=== PATIENT | male | born 1955 | race Caucasian/White ===

== ENCOUNTER → 2016-09-13 | Day surgery (SDC) | payer OTHER ==
[~2016-09-13] MED LIST: APIX5TAB PO; ASPI325T11 PO; ASPI81TA9 PO; ATOR20TA58 PO; CLOP75TA27 PO; ENOX80DI SQ; HYDROmorphone 2 MG/ML VIAL IV PRN; IBUP-1027 PO; IV RINGERS,LACTATED 1000ML 1,000 ML IV SCH; LIDOCAINE 1% 1 ML SYRINGE. ID PRN; LIDOCAINE 2% PF Vial for OR 5 ML VIAL. ONE; LISI2.5T PO; METO25TA9 PO; MORPHINE SULFATE 2 MG/ML DISP.SYRIN. IV PRN; NITR0.4T SL; OMEP20TA PO; OMEP20TA63 PO; ONDANSETRON PF 4 MG/2 ML VIAL. IV PRN; OXYC5CAP3 PO; PANT40TA3 PO; PANT40TA5 PO; PROCHLORPERAZINE 10 MG/2 ML VIAL. IV PRN; PROPOFOL 20 ML IV ONE; fentaNYL PF VIAL 100 MCG/2 ML VIAL IV PRN
[2016-09-13 08:39] VITALS: BP 119/78
--- NOTE | 2016-09-14 10:25 | HP ---
ADMIT DATE: 09/13/2016 REFERRING PHYSICIAN: Ruby Hernadez, nurse practitioner. HISTORY OF PRESENT ILLNESS: A 60-year-old male with past medical history significant for hypertension as well as hyperlipidemia, gastroesophageal reflux disease, esophageal stricture, was seen with recurrent dysphagia mainly for solids in a substernal location. The patient has had previous dilatations with improvement in symptoms. Once, the dilation was approximately 18 months, previously been on Protonix 40 mg daily in the interim. With continued symptoms, he requests additional evaluation. PAST MEDICAL HISTORY: Organic heart disease, hypertension, hyperlipidemia, gastroesophageal reflux disease. ALLERGIES: None. MEDICATIONS: Include Eliquis, aspirin, atorvastatin, lisinopril, metoprolol, nitroglycerin and pantoprazole. PAST SURGICAL HISTORY: Status post inguinal hernia repair, cholecystectomy and back surgery. FAMILY AND SOCIAL HISTORY: He is a social drinker and smoker. REVIEW OF SYSTEMS: Per records. PHYSICAL EXAMINATION: GENERAL: Reveals a well-nourished, well-developed male. VITAL SIGNS: Temperature is 98.1, pulse 60, respirations 20. HEENT: Normocephalic and atraumatic head. Pupils and extraocular muscles not tested. Sclerae anicteric. NECK: Supple. LUNGS: Clear. CARDIOVASCULAR: Reveals an S1, S2 without S3, S4 or appreciable murmur. ABDOMEN: Reveals soft abdomen, normal bowel sounds, without appreciable hepatosplenomegaly. EXTREMITIES: Reveals no cyanosis, clubbing or edema. IMPRESSION: Dysphagia with known history of stricture. Recommend upper endoscopy, possible biopsy and dilatation. Risks and benefits have been previously discussed with the patient who is willing to proceed. I thank Damari Hernadez for allowing us to participate in his care . FUNMI YING MD DR: ZOLTAN/vale JOB#: [id number] / [id number]
--- NOTE | 2016-09-18 13:37 | PATHOLOGY ---
PATHOLOGY REPORT * * * * * * * * FINAL DIAGNOSIS: Esophageal biopsy: - Segments of hyperplastic squamous esophageal mucosa showing acute and chronic inflammation with intraepithelial neutrophils and focal presence of yeast and pseudohyphae, consistent with Annalise esophagitis. COMMENT: Sections of the esophageal biopsy reveal segments of tangentially oriented, hyperplastic squamous esophageal mucosa showing acute and chronic inflammation with intraepithelial neutrophils. A PAS stain for yeast/fungi is obtained. There are focal yeast and pseudohyphae consistent with Annalise species. The findings are consistent with Annalise esophagitis. There is no evidence of Allen's change, dysplasia or malignancy. (JPM:csd; d/t: 09/14/2016) Special stains: PAS stain for yeast/fungi REPORT ELECTRONICALLY SIGNED BY: Danial Nice M.D. DATE/TIME: 09/18/2016 13:36 * * * * * * * * GROSS PATHOLOGY: Received in formalin labeled "Christopher Hairston , esophageal biopsy," are three segments of moore soft tissue measuring 0.8 x 0.7 x 0.1 cm in aggregate dimensions and ranging from 0.3 to 0.5 cm in maximum dimension. The specimen is submitted entirely in cassette A1. (CAA; 09/14/2016) INITIAL CPT CODE(S): A; 87097, 50023 Professional services performed [place] [facility] [address] Technical services performed by [facility] at [address] [place] [address] [address] [address]. SPECIMEN(S) RECEIVED: A.Esophageal biopsy CLINICAL HISTORY: Dysphagia PATIENT: BESS HAIRSTONDEE Jimenez /AGE: 610/03/1955 (Age: 60) PATIENT #: [id number] ALT CASE #: SPECIMEN COLLECTION DATE: 09/13/2016 SPECIMEN RECEIVED DATE: 09/13/2016 [facility] - [id number] [place] [address] - PHONE: [phone] * * * END OF REPORT * * *
== END | disposition home or self-care (01) ==
LOC: ENDOS 06:31
PROVIDERS: ATTEND Internal Medicine Gastroenterology
DX: K21.0 Gastro-esophageal reflux disease with esophagitis (principal); K22.2 Esophageal obstruction; K29.50 Unspecified chronic gastritis without bleeding; E78.00 Pure hypercholesterolemia, unspecified; I10 Essential (primary) hypertension; M19.90 Unspecified osteoarthritis, unspecified site; Z90.49 Acquired absence of other specified parts of digestive tract; Z72.89 Other problems related to lifestyle
CPT/HCPCS: 43239; 43249; 88305; 88312; J2704

== ENCOUNTER → 2017-01-22 | Outpatient (CLI) | payer OTHER ==
[~2017-01-22] MED LIST changes: +ASPI-612 PO; -ASPI81TA9 PO; -CLOP75TA27 PO; +CLOP75TA57 PO; -HYDROmorphone 2 MG/ML VIAL IV PRN; -IV RINGERS,LACTATED 1000ML 1,000 ML IV SCH; -LIDOCAINE 1% 1 ML SYRINGE. ID PRN; -LIDOCAINE 2% PF Vial for OR 5 ML VIAL. ONE; +METO-239 PO; -METO25TA9 PO; -MORPHINE SULFATE 2 MG/ML DISP.SYRIN. IV PRN; -OMEP20TA PO; +OMEP20TA8 PO; -ONDANSETRON PF 4 MG/2 ML VIAL. IV PRN; +OXYC5CAP PO; -OXYC5CAP3 PO; -PROCHLORPERAZINE 10 MG/2 ML VIAL. IV PRN; -PROPOFOL 20 ML IV ONE; -fentaNYL PF VIAL 100 MCG/2 ML VIAL IV PRN
--- NOTE | 2017-01-22 09:04 | KCIC ---
UPPER EXT JOINT WO CONT LEFT dated 01/22/2017 8:00 AM Indication: Shoulder pain for couple of months , no known injury. Decreased range of motion.. Comparison: No comparison is available. Technique: Routine multiplanar multisequence imaging performed. No contrast administered. Findings: Intermediate T2 signal throughout the supraspinatus and infraspinatus portions of the rotator cuff. There is a small linear defect at the central supraspinatus footplate that measures about 4 mm AP dimension and 1.6 cm transverse. May be a few thin fibers remain attached. The articular and bursal surface margins are ill-defined. Increased signal and thickening of the subscapularis which is otherwise intact. There is moderate increased signal within the substance a long head biceps tendon proximally. Extra articular portion courses within the bicipital groove. Increased signal also extends to the biceps anchor which is somewhat ill-defined. There is blunted morphology of the posterior superior labrum extending from 12:00 to about 5:00. The anterior labrum is grossly intact. No para labral cyst. No significant glenohumeral joint effusion or loose body. No full-thickness cartilage defect. Moderate hypertrophic change of the acromioclavicular joint. Mild undersurface spurring. Acromion type I morphology. Small amount of subacromial/subdeltoid bursal fluid. Suprascapular and spinoglenoid notches are clear. No significant muscle edema or muscle atrophy. No bone marrow edema. IMPRESSION: 1. Moderate rotator cuff tendinopathy with small full-thickness tear versus high-grade interstitial partial tear of the central supraspinatus footplate. 2. Blunted morphology of the biceps anchor and posterior labrum, likely chronic degenerative labral tearing. 3. Moderate AC joint arthropathy with undersurface spurring of the acromium. 4. Moderate proximal biceps tendinosis. Electronically signed by: Kyle Hemphill MD (01/22/2017 9:00 AM) [facility]
== END | disposition home or self-care (01) ==
LOC: MERGE 07:34 → KCIC MRI 07:34
PROVIDERS: ATTEND Nurse Practitioner Gerontology
DX: M25.512 Pain in left shoulder (principal)
CPT/HCPCS: 73221

== ENCOUNTER → 2017-01-25 | Outpatient (CLI) | payer OTHER ==
[2016-09-13 08:39] VITALS: BP 119/78
[~2017-01-25] MED LIST changes: +HYDR2TAB31 PO; +METO25TA4 PO; +OMEP40CA5 PO
--- NOTE | 2017-01-25 10:26 | CARD ---
APPROVED REPORT EXAM: Two-dimensional and M-mode echocardiogram with Doppler and color Doppler. Other Information Quality : Average Rhythm : NSR INDICATION Cardiac Disease: CAD 2D DIMENSIONS RVDd2.7 (2.9-3.5cm)Left Atrium(2D)3.3 (1.6-4.0cm) IVSd1.2 (0.7-1.1cm)Aortic Root(2D)3.3 (2.0-3.7cm) LVDd4.3 (3.9-5.9cm)LVOT Diameter2.0 (1.8-2.4cm) PWd1.1 (0.7-1.1cm)LVDs3.2 (2.5-4.0cm) FS (%) 25.1 %SV41.6 ml Aortic Valve AoV Peak Louie.89.4cm/sAoV VTI16.1cm AO Peak GR.3.2mmHgLVOT Peak Louie.82.7cm/s AO Mean GR.2mmHgAVA (VMAX)3.04cm2 Mitral Valve MV E Crfhnqul52.7cm/sMV E Peak Gr.1mmHg MV DECEL [id number] A Dyhkcoss20.2cm/s MV E Mean Gr.0mmHgMV NMJ12vu E/A Ratio0.9MV A Lhxxbwct125vf MVA (PHT)2.63cm2 Pulmonary Vein S1 Mqapdljb25.3cm/sD2 Spnkfovc38.4cm/s LEFT VENTRICLE The left ventricle is normal size. There is normal left ventricular wall thickness. The Ejection Frac tion is 50-55%. Basal inferior wall hypokinesis. Tissue Doppler imaging reveals mild left ventricular diastolic dysfunction. Transmitral Doppler flow pattern is Grade I-abnormal relaxation pattern. Ther e is no ventricular septal defect visualized. RIGHT VENTRICLE The right ventricle is normal size. The right ventricular systolic function is normal. ATRIA The left atrium size is normal. The right atrium size is normal. The interatrial septum is intact wit h no evidence for an atrial septal defect or patent foramen ovale as noted on 2-D or Doppler imaging. AORTIC VALVE The aortic valve is mildly calcified. The aortic valve is trileaflet. Doppler and Color Flow revealed no significant aortic regurgitation. There is no significant aortic valvular stenosis. MITRAL VALVE The mitral valve is normal in structure and function. There is no mitral valve stenosis. Doppler and Color Flow revealed no mitral valve regurgitation noted. TRICUSPID VALVE The tricuspid valve is normal in structure and function. Doppler and Color Flow revealed no tricuspid valve regurgitation noted. Unable to estimate PA pressure. There is no tricuspid valve stenosis. PULMONIC VALVE The pulmonary valve is normal in structure and function. Doppler and Color Flow revealed no pulmonic valvular regurgitation. There is no pulmonic valvular stenosis. GREAT VESSELS The aortic root is normal in size. The ascending aorta is normal in size. Normal pulmonary venous lobo w (Doppler). The IVC was not well visualized. PERICARDIAL EFFUSION There is no evidence of significant pericardial effusion. Critical Notification Critical Value: No <Conclusion> Basal inferior wall hypokinesis. The Ejection Fraction is 50-55%. Transmitral Doppler flow pattern is Grade I-abnormal relaxation pattern. There is no evidence of significant pericardial effusion.
== END | disposition home or self-care (01) ==
LOC: ECHO 08:45 → MERGE 09:00 → EDUNIT# 09:00
PROVIDERS: ATTEND Internal Medicine Cardiovascular Disease
DX: I25.10 Atherosclerotic heart disease of native coronary artery without angina pectoris (principal)
CPT/HCPCS: 93306

== ENCOUNTER 2017-02-06 08:39 | Day surgery (SDC) | payer OTHER ==
[~2017-02-06] VITALS: Ht 170.2 cm; Wt 78.5 kg
[~2017-02-06 08:39] MED LIST changes: -HYDR2TAB31 PO; +HYDROmorphone 2 MG/ML VIAL IV PRN; +IV RINGERS,LACTATED 1000ML 1,000 ML IV SCH; +LIDOCAINE 1% PF 2 ML VIAL. ID PRN; +MORPHINE SULFATE 2 MG/ML DISP.SYRIN. IV PRN; +ONDANSETRON PF 4 MG/2 ML VIAL. IV PRN; +PROCHLORPERAZINE 10 MG/2 ML VIAL. IV PRN; +fentaNYL PF VIAL 100 MCG/2 ML VIAL IV PRN
[2017-02-06] MEDS ORDERED: DEXAMETHASONE SOD PHOS 20 MG/5 ML VIAL. ONE (09:57)
[2017-02-06] MEDS ORDERED: MIDAZOLAM HCL/PF 2 MG/2 ML VIAL. ONE (09:57)
[2017-02-06] MEDS ORDERED: PROPOFOL 20 ML IV ONE ×2 (09:57→12:54)
[2017-02-06] MEDS ORDERED: DESFLURANE 61 TO 120 MINUTES IH ONE (09:57)
[2017-02-06] MEDS ORDERED: ONDANSETRON PF 4 MG/2 ML VIAL. ONE (09:57)
[2017-02-06] MEDS ORDERED: fentaNYL PF VIAL 100 MCG/2 ML VIAL ONE (09:57)
[2017-02-06] MEDS ORDERED: ROCURONIUM 50 MG/5 ML VIAL. ONE (09:57)
[2017-02-06] MEDS ORDERED: LIDOCAINE 2% PF Vial for OR 5 ML VIAL. ONE (09:58)
[2017-02-06] MEDS ORDERED: PHENYLEPHRINE 10 MG/ML VIAL. ONE (09:58)
[2017-02-06] MEDS ORDERED: EPINEPHrine VIAL 30 MG/30 ML VIAL ONE (10:01)
[2017-02-06] MEDS ORDERED: BUPIVACAINE MPF 0.5% 30 ML VIAL. ONE ×2 (10:05→10:11)
[2017-02-06 10:09] LABS: CALCIUM 8.6 mg/dL (8.5-10.1); GFR 75.5; POTASSIUM 4.1 mmol/L (3.5-5.1)
--- NOTE | 2017-02-06 10:45 | DISCH ---
DISCHARGE INSTRUCTIONS Condition on Discharge Condition on Discharge: Stable Activity After Discharge Activity Instructions for Disc: Other, see below Other activity instructions: no active motion of left arm away from body, keep elbow at side for any use Diet after Discharge Diet after Discharge: Regular Wound Incision Care Wound/Incision Care: Ice to area for comfort, Change dressing Other wound/incision instructi: removed dressings in 2 days may then shower Community/Resources/Services Services at Discharge: PT EVALUATE & TREAT (pendulum exercises and passive range of motion of left shoulder only) Contacting the [facility] after DC Call your doctor for: Concerns you may have Follow-Up Follow up with: Saran 7-10 days ALEXA COOK MD Feb 06, 2017 10:45
[2017-02-06] MEDS ORDERED: HYDR2TAB31 PO (10:51)
[2017-02-06 10:52] LABS: BASO # 0.1 x10^3/uL (0.0-0.2); BASO % 1 % (0-3); EOS % 2 % (0-3); HEMATOCRIT 45.6 % (39.0-53.0); HEMOGLOBIN 15.7 g/dL (13.0-17.5); LYMPH # 2.4 x10^3/uL (1.0-4.8); LYMPH % 28 % (24-48); MEAN CORPUSCULAR HEMOGLOBIN 33 pg (25-35); MEAN CORPUSCULAR HGB CONC 34 g/dL (31-37); MEAN CORPUSCULAR VOLUME 95 fL (79-100); MONO % 7 % (0-9); NEUT % 63 % (31-73); PLATELET COUNT 164 x10^3/uL (140-400); RED CELL DISTRIBUTION WIDTH 13.6 % (11.5-14.5); WHITE BLOOD COUNT 8.5 x10^3/uL (4.0-11.0)
--- NOTE | 2017-02-06 11:03 | RAD ---
Chest radiograph 02/06/2017 12:29 PM Indication: Preoperative examination. Comparison: CT chest 02/25/2016 Technique: Single portable upright frontal view of the chest is provided. Findings: Cardiomediastinal silhouette is within normal limits. There is elevation of left hemidiaphragm. No pleural effusions, pulmonary vascular congestion or pneumothorax. The lungs are clear. Osseous structures are normal. Impression: No acute cardiopulmonary process. There is new elevation left hemidiaphragm. Findings could represent infiltration of the left hemidiaphragm versus diaphragmatic palsy.
[2017-02-06] MEDS ORDERED: ESMOLOL 100 MG/10 ML VIAL. IV ONE (11:38)
[2017-02-06] MEDS ORDERED: GLYCOPYRROLATE 1 MG/5 ML VIAL. ONE ×3 (12:36)
[2017-02-06] MEDS ORDERED: NEOSTIGMINE METHYLSULFATE 5 MG/5 ML SYRINGE. ONE (13:32)
[2017-02-06] MEDS ORDERED: SEVOFLURANE > 120 MINUTES. IH ONE (13:35)
[2017-02-06] MEDS ORDERED: HYDROmorphone 2 MG TABLET PO ONE (14:00)
[2017-02-06] MEDS: fentaNYL PF VIAL 100 MCG/2 ML VIAL IV PRN ×2 (14:22→14:29)
[2017-02-06 14:50] VITALS: BP 137/80
--- NOTE | 2017-02-06 16:42 | PDOC4 ---
Operative Note Operative Note Date of surgery: 02/06/2017 Preoperative diagnosis: Left shoulder rotator cuff repair biceps fraying impingement and acromioclavicular joint degenerative joint disease and pain Postoperative diagnosis: Rotator cuff intact, severe biceps fraying, subacromial impingement and acromioclavicular joint degenerative change as well as significant superior labral fraying Procedure: Left shoulder arthroscopy superior labral debridement biceps tenodesis, distal clavicle excision and subacromial decompression Surgeon: Saran Anesthesia: Gen. endotracheal plus interscalene block Estimated blood loss 20 mL Complications: None Operative indications: Patient is a 61-year-old male with left shoulder pain unresponsive to nonoperative management MRI was concerning for a rotator cuff tear he certainly had biceps irritation signs as well and signs of fraying impingement and acromioclavicular joint pain with severe degenerative changes present. I had gone over with him operative treatment options including the long recovery process possibility of rotator cuff repair and the expected restrictions in the possibility of nonhealing continued pain nerve or blood vessel damage infection medical or other anesthetic complications among others. All his questions were answered he wants proceed with surgical evaluation and treatment after informed consent was obtained Operative text: Patient was identified procedure verified patient placed in the supine position on the operating table. After adequate amounts of general endotracheal anesthesia plus pre-existing interscalene block was obtained, he was placed in the decubitus position left side up all bony prominences were well -padded and the shoulder was examined under anesthesia found to have full range of motion no instability. The left shoulder was then prepped and draped in standard sterile fashion placed in the arthroscopic arm souza with a total of 10 pounds of traction timeout was then performed patient procedure identified and verified and a standard posterior portal was established an anterior portal established using spinal localization and the shoulder joint was systematically examined. He was noted to have severe biceps tendon fraying and superior labral fraying biceps was tagged and tenotomized superior labrum was debrided back to stable tissue subscapularis and the remainder the rotator cuff appeared intact to insertion normal bare area of the humerus capsule ligament structures and well maintained glenohumeral joint was noted. Subacromial space was then entered bursa was cleared to allow visualization and a large anterior subacromial spur was removed back to a type I acromion using cutting block technique he had a very large spur inferiorly on the acromioclavicular joint and the joint was very narrowed and degenerative distal clavicle was excised to 1 cm to allow an adequate joint space preserving overlying joint capsule for stability bony fragments were then removed and the rotator cuff was examined on the bursal side and all degrees of internal/external rotation and found to be intact biceps was tenodesed with the [employer] biceps are device in the bicipital groove under adequate tension joint was drained of arthroscopic fluid portals closed with nylon suture sterile dressings were applied patient was placed in a sling extirpated transferred to postop holding in stable condition having tolerated procedure well ALEXA COOK MD Feb 06, 2017 16:42
== END 2017-02-06 15:42 | disposition home or self-care (01) ==
LOC: SURG 08:39
PROVIDERS: ATTEND Orthopaedic Surgery
DX: M19.012 Primary osteoarthritis, left shoulder (principal); M25.812 Other specified joint disorders, left shoulder; S46.012A Strain of muscle(s) and tendon(s) of the rotator cuff of left shoulder, initial encounter; X58.XXXA Exposure to other specified factors, initial encounter; Y93.89 Activity, other specified; Y92.89 Other specified places as the place of occurrence of the external cause; Y99.8 Other external cause status; I11.0 Hypertensive heart disease with heart failure; I50.9 Heart failure, unspecified; I25.10 Atherosclerotic heart disease of native coronary artery without angina pectoris; K21.9 Gastro-esophageal reflux disease without esophagitis; Z90.49 Acquired absence of other specified parts of digestive tract; Z98.890 Other specified postprocedural states; Z86.718 Personal history of other venous thrombosis and embolism; Z87.39 Personal history of other diseases of the musculoskeletal system and connective tissue; Z72.89 Other problems related to lifestyle; Z72.0 Tobacco use
CPT/HCPCS: 29823; 29824; 36415; 71010; 80048; 85025; C1713; J0171; J0690; J1100; J2250; J2405; J2704; J2710; J3010; J3490; J2001

== ENCOUNTER → 2017-07-16 | Outpatient (CLI) | payer OTHER ==
[2017-07-16] MEDS: REGADENOSON 0.4 MG/5 ML DISP.SYRIN. IV (10:14)
== END | disposition home or self-care (01) ==
LOC: NM 07:54
DX: I11.0 Hypertensive heart disease with heart failure (principal); I25.10 Atherosclerotic heart disease of native coronary artery without angina pectoris; I25.2 Old myocardial infarction; Z87.891 Personal history of nicotine dependence
CPT/HCPCS: 78452; 93017; 96374; 96375; 96376; A9500; J2785

== ENCOUNTER 2017-07-30 06:39 | Outpatient (CLI) | payer OTHER ==
[2017-07-30 07:58] LABS: HEMOGLOBIN 14.9 g/dL (13.0-17.5); MEAN CORPUSCULAR HEMOGLOBIN 32 pg (25-35); MEAN CORPUSCULAR HGB CONC 34 g/dL (31-37); MEAN CORPUSCULAR VOLUME 94 fL (79-100); PLATELET COUNT 175 x10^3/uL (140-400); RED BLOOD COUNT 4.69 x10^6/uL (4.30-5.70); RED CELL DISTRIBUTION WIDTH 14.6 % (11.5-14.5); WHITE BLOOD COUNT 6.4 x10^3/uL (4.0-11.0)
[2017-07-30 08:10] LABS: ANION GAP 8 (6-14); BLOOD UREA NITROGEN 8 mg/dL (8-26); CALCIUM 8.6 mg/dL (8.5-10.1); CARBON DIOXIDE 27 mmol/L (21-32); CHLORIDE 104 mmol/L (98-107); CREATININE 1.2 mg/dL (0.7-1.3); GFR 61.1; GLUCOSE 102 mg/dL (70-99); POTASSIUM 3.7 mmol/L (3.5-5.1); SODIUM 139 mmol/L (136-145)
[2017-07-30 08:27] LABS: INR 1.1 (0.8-1.1); PARTIAL THROMBOPLASTIN TIME 28 SEC (24-38); PROTHROMBIN TIME PATIENT 14.1 SEC (11.7-14.0)
[2017-07-30] MEDS ORDERED: LIDOCAINE 2% 20 ML VIAL. (09:18)
[2017-07-30] MEDS ORDERED: IODIXANOL 320MG/ML 50ML VIAL. (09:18)
[2017-07-30] MEDS ORDERED: IODIXANOL 320 MG/ML 100 ML VIAL. (09:18)
[2017-07-30] MEDS ORDERED: fentaNYL PF VIAL 100 MCG/2 ML VIAL (09:46)
[2017-07-30] MEDS ORDERED: HEPARIN for IV BOLUS 10,000 UNIT/10 ML VIAL. (09:46)
[2017-07-30] MEDS ORDERED: MIDAZOLAM HCL/PF 5 MG/5 ML VIAL. (09:46)
[2017-07-30] MEDS ORDERED: CONTRAST GIVEN MC (10:15)
[2017-07-30] MEDS: IODIXANOL 320MG/ML 50ML VIAL. IART (10:42)
[2017-07-30] MEDS: IODIXANOL 320 MG/ML 100 ML VIAL. IART (10:42)
[2017-07-30] MEDS: fentaNYL PF VIAL 100 MCG/2 ML VIAL IV (10:43)
[2017-07-30] MEDS: LIDOCAINE 2% 20 ML VIAL. IJ (10:43)
[2017-07-30] MEDS: MIDAZOLAM HCL/PF 5 MG/5 ML VIAL. IV (10:43)
[2017-07-30] MEDS ORDERED: fentaNYL PF VIAL 100 MCG/2 ML VIAL IV (11:00)
[2017-07-30] MEDS ORDERED: NITROGLYCERIN SUBLINGUAL 0.4 MG BOTTLE OF 25. SL (11:00)
[2017-07-30] MEDS ORDERED: MAGNESIUM HYDROXIDE 2,400 MG/30 ML ORAL.SUSP. PO (11:00)
[2017-07-30] MEDS ORDERED: MIDAZOLAM HCL/PF 2 MG/2 ML VIAL. IV (11:00)
[2017-07-30] MEDS ORDERED: 0.9 % SODIUM CHLORIDE 10 ML DISP.SYRIN. IV (11:00)
[2017-07-30] MEDS ORDERED: ACETAMINOPHEN 325 MG TABLET. PO (11:00)
[2017-07-30] MEDS ORDERED: IV 1/2 NORMAL SALINE 1,000 ML IV (12:00)
== END 2017-07-30 13:20 | disposition home or self-care (01) ==
LOC: US 06:39
DX: I25.10 Atherosclerotic heart disease of native coronary artery without angina pectoris (principal); I73.9 Peripheral vascular disease, unspecified; I77.1 Stricture of artery; I11.0 Hypertensive heart disease with heart failure; I50.9 Heart failure, unspecified; J44.9 Chronic obstructive pulmonary disease, unspecified; R68.89 Other general symptoms and signs
CPT/HCPCS: 36415; 75630; 80048; 85027; 85610; 85730; 93880; 99152; 99153; C1771; C1892; J1644; J2250; J3010

== ENCOUNTER 2017-09-13 14:37 | Inpatient (IN) | payer OTHER ==
[2017-09-13] MEDS ORDERED: ONDANSETRON PF 4 MG/2 ML VIAL. IV (16:00)
[2017-09-13] MEDS ORDERED: HEPARIN 25,000UTS/500ML PREMIX 500 ML IV (16:00)
[2017-09-13] MEDS: ACETAMINOPHEN 325 MG TABLET. PO ×2 (16:00→21:34)
[2017-09-13 16:05] LABS: ADD MAN DIFF? NO
[2017-09-13 16:10] LABS: BASO % 0 % (0-3); EOS % 1 % (0-3); HEMATOCRIT 37.1 % (39.0-53.0); HEMOGLOBIN 13.1 g/dL (13.0-17.5); LYMPH # 2.1 x10^3/uL (1.0-4.8); LYMPH % 26 % (24-48); MEAN CORPUSCULAR HEMOGLOBIN 33 pg (25-35); MEAN CORPUSCULAR HGB CONC 35 g/dL (31-37); MEAN CORPUSCULAR VOLUME 92 fL (79-100); MONO # 0.6 x10^3/uL (0.0-1.1); MONO % 7 % (0-9); NEUT # 5.2 x10^3uL (1.8-7.7); NEUT % 66 % (31-73); PLATELET COUNT 182 x10^3/uL (140-400); RED BLOOD COUNT 4.03 x10^6/uL (4.30-5.70); RED CELL DISTRIBUTION WIDTH 14.2 % (11.5-14.5)
[2017-09-13 16:15] LABS: ANION GAP 10 (6-14); BLOOD UREA NITROGEN 7 mg/dL (8-26); BUN/CREATININE RATIO 7 (6-20); CARBON DIOXIDE 25 mmol/L (21-32); CHLORIDE 100 mmol/L (98-107); GFR 75.5; GLUCOSE 105 mg/dL (70-99); POTASSIUM 3.5 mmol/L (3.5-5.1); SODIUM 135 mmol/L (136-145)
[2017-09-13 16:20] LABS: INR 1.6 (0.8-1.1); PARTIAL THROMBOPLASTIN TIME 40 SEC (24-38); PROTHROMBIN TIME PATIENT 18.5 SEC (11.7-14.0)
[2017-09-13 16:22] LABS: ALBUMIN 2.6 g/dL (3.4-5.0); ALBUMIN/GLOBULIN RATIO 0.7 (1.0-1.7); ALK PHOS 138 U/L (46-116); ALT (SGPT) 21 U/L (16-63); AST (SGOT) 30 U/L (15-37); TOTAL BILIRUBIN 0.9 mg/dL (0.2-1.0); TOTAL PROTEIN 6.1 g/dL (6.4-8.2)
[2017-09-13] MEDS: MORPHINE SULFATE 4 MG/ML DISP.SYRIN. IV ×2 (17:12→21:33)
[2017-09-13] MEDS: METOPROLOL TART IMMED RELEASE 25 MG TABLET. PO (21:34)
[2017-09-13] MEDS: HEPARIN 25,000UTS/500ML PREMIX 500 ML IV (22:51)
[2017-09-14] MEDS: MORPHINE SULFATE 4 MG/ML DISP.SYRIN. IV ×2 (00:13→07:46)
[2017-09-14 06:21] LABS: ADD MAN DIFF? NO
[2017-09-14 06:36] LABS: INR 1.6 (0.8-1.1); PROTHROMBIN TIME PATIENT 18.2 SEC (11.7-14.0)
[2017-09-14 06:41] LABS: UNFRACTIONATED HEPARIN TESTING > 1.10 IU/mL (0.30-0.70)
[2017-09-14 06:43] LABS: BASO # 0.1 x10^3/uL (0.0-0.2); BASO % 1 % (0-3); EOS # 0.1 x10^3/uL (0.0-0.7); EOS % 2 % (0-3); HEMATOCRIT 35.8 % (39.0-53.0); HEMOGLOBIN 12.6 g/dL (13.0-17.5); LYMPH # 2.7 x10^3/uL (1.0-4.8); LYMPH % 41 % (24-48); MEAN CORPUSCULAR HEMOGLOBIN 33 pg (25-35); MEAN CORPUSCULAR HGB CONC 35 g/dL (31-37); MEAN CORPUSCULAR VOLUME 92 fL (79-100); MONO # 0.4 x10^3/uL (0.0-1.1); MONO % 7 % (0-9); NEUT # 3.2 x10^3uL (1.8-7.7); NEUT % 50 % (31-73); PLATELET COUNT 182 x10^3/uL (140-400); RED BLOOD COUNT 3.88 x10^6/uL (4.30-5.70); RED CELL DISTRIBUTION WIDTH 14.3 % (11.5-14.5); WHITE BLOOD COUNT 6.6 x10^3/uL (4.0-11.0)
[2017-09-14 07:33] LABS: ALBUMIN 2.2 g/dL (3.4-5.0); ALBUMIN/GLOBULIN RATIO 0.7 (1.0-1.7); ALK PHOS 124 U/L (46-116); ALT (SGPT) 18 U/L (16-63); ANION GAP 9 (6-14); AST (SGOT) 25 U/L (15-37); BLOOD UREA NITROGEN 8 mg/dL (8-26); BUN/CREATININE RATIO 9 (6-20); CALCIUM 7.9 mg/dL (8.5-10.1); CARBON DIOXIDE 25 mmol/L (21-32); CHLORIDE 103 mmol/L (98-107); CREATININE 0.9 mg/dL (0.7-1.3); GFR 85.2; GLUCOSE 82 mg/dL (70-99); SODIUM 137 mmol/L (136-145); TOTAL PROTEIN 5.3 g/dL (6.4-8.2)
[2017-09-14] MEDS: ACETAMINOPHEN 325 MG TABLET. PO ×3 (08:37→20:43)
[2017-09-14] MEDS: LISINOPRIL 5 MG TABLET. PO (08:37)
[2017-09-14] MEDS: METOPROLOL TART IMMED RELEASE 25 MG TABLET. PO ×2 (08:37→20:43)
[2017-09-14] MEDS: PANTOPRAZOLE 40 MG TABLET.DR. PO (08:38)
[2017-09-14] MEDS: HYDROmorphone 2 MG TABLET PO ×3 (08:39→18:03)
[2017-09-14] MEDS ORDERED: NON FORMULARY ITEM (Omeprazole 1 CAP) PO (09:00)
[2017-09-14] MEDS: ASPIRIN 325 MG TABLET PO (13:56)
[2017-09-14 14:12] LABS: UNFRACTIONATED HEPARIN TESTING > 1.10 IU/mL (0.30-0.70)
[2017-09-14] MEDS: cefTRIAXone IV Push 1 GM VIAL. IVP (16:57)
[2017-09-14] MEDS: fentaNYL PF VIAL 100 MCG/2 ML VIAL IV ×2 (16:57→20:48)
[2017-09-14 20:25] LABS: UNFRACTIONATED HEPARIN TESTING > 1.10 IU/mL (0.30-0.70)
[2017-09-15] MEDS: HYDROmorphone 2 MG TABLET PO ×4 (00:11→21:21)
[2017-09-15 02:38] LABS: UNFRACTIONATED HEPARIN TESTING 0.84 IU/mL (0.30-0.70)
[2017-09-15 05:17] LABS: HEMATOCRIT 34.1 % (39.0-53.0); HEMOGLOBIN 11.6 g/dL (13.0-17.5); MEAN CORPUSCULAR HEMOGLOBIN 32 pg (25-35); MEAN CORPUSCULAR HGB CONC 34 g/dL (31-37); MEAN CORPUSCULAR VOLUME 93 fL (79-100); PLATELET COUNT 163 x10^3/uL (140-400); RED BLOOD COUNT 3.69 x10^6/uL (4.30-5.70); RED CELL DISTRIBUTION WIDTH 14.2 % (11.5-14.5); WHITE BLOOD COUNT 6.7 x10^3/uL (4.0-11.0)
[2017-09-15 05:36] LABS: ALBUMIN/GLOBULIN RATIO 0.6 (1.0-1.7); ALK PHOS 120 U/L (46-116); ALT (SGPT) 14 U/L (16-63); ANION GAP 9 (6-14); AST (SGOT) 24 U/L (15-37); BLOOD UREA NITROGEN 9 mg/dL (8-26); BUN/CREATININE RATIO 10 (6-20); CARBON DIOXIDE 24 mmol/L (21-32); CHLORIDE 101 mmol/L (98-107); CREATININE 0.9 mg/dL (0.7-1.3); GFR 85.2; GLUCOSE 83 mg/dL (70-99); POTASSIUM 3.7 mmol/L (3.5-5.1); SODIUM 134 mmol/L (136-145); TOTAL BILIRUBIN 0.7 mg/dL (0.2-1.0); TOTAL PROTEIN 5.1 g/dL (6.4-8.2)
[2017-09-15 07:18] LABS: SEDIMENTATION RATE 6 (0-15)
[2017-09-15] MEDS: ACETAMINOPHEN 325 MG TABLET. PO ×3 (08:10→20:57)
[2017-09-15] MEDS: PANTOPRAZOLE 40 MG TABLET.DR. PO (08:11)
[2017-09-15] MEDS: ASPIRIN 325 MG TABLET PO (08:11)
[2017-09-15] MEDS: LISINOPRIL 5 MG TABLET. PO (08:11)
[2017-09-15] MEDS: fentaNYL PF VIAL 100 MCG/2 ML VIAL IV ×2 (08:12→16:20)
[2017-09-15 10:11] LABS: UNFRACTIONATED HEPARIN TESTING 0.68 IU/mL (0.30-0.70)
[2017-09-15] MEDS: HEPARIN 25,000UTS/500ML PREMIX 500 ML IV (10:41)
[2017-09-15] MEDS: METOPROLOL TART IMMED RELEASE 25 MG TABLET. PO ×2 (11:41→20:57)
[2017-09-15] MEDS: cefTRIAXone IV Push 1 GM VIAL. IVP (16:20)
[2017-09-15 16:23] LABS: UNFRACTIONATED HEPARIN TESTING 0.51 IU/mL (0.30-0.70)
[2017-09-15] MEDS: LACTOBACILLUS RHAMNOSUS GG 1 CAPSULE. PO (20:57)
[2017-09-16] MEDS: fentaNYL PF VIAL 100 MCG/2 ML VIAL IV ×4 (03:29→16:16)
[2017-09-16] MEDS: ASPIRIN 325 MG TABLET PO (08:14)
[2017-09-16] MEDS: ACETAMINOPHEN 325 MG TABLET. PO ×3 (08:14→21:20)
[2017-09-16] MEDS: LACTOBACILLUS RHAMNOSUS GG 1 CAPSULE. PO ×2 (08:14→21:20)
[2017-09-16] MEDS: LISINOPRIL 5 MG TABLET. PO (08:14)
[2017-09-16] MEDS: PANTOPRAZOLE 40 MG TABLET.DR. PO (08:15)
[2017-09-16] MEDS: METOPROLOL TART IMMED RELEASE 25 MG TABLET. PO ×2 (08:15→21:00)
[2017-09-16] MEDS: HYDROmorphone 2 MG TABLET PO ×3 (08:15→19:14)
[2017-09-16 16:16] LABS: UNFRACTIONATED HEPARIN TESTING 0.25 IU/mL (0.30-0.70)
[2017-09-16] MEDS: cefTRIAXone IV Push 1 GM VIAL. IVP (16:16)
[2017-09-16] MEDS: HEPARIN for IV BOLUS 10,000 UNIT/10 ML VIAL. IV (16:36)
[2017-09-16 22:36] LABS: UNFRACTIONATED HEPARIN TESTING 0.23 IU/mL (0.30-0.70)
[2017-09-17] MEDS: HEPARIN for IV BOLUS 10,000 UNIT/10 ML VIAL. IV ×2 (00:11→19:40)
[2017-09-17] MEDS: fentaNYL PF VIAL 100 MCG/2 ML VIAL IV ×7 (00:16→23:25)
[2017-09-17] MEDS: PANTOPRAZOLE 40 MG TABLET.DR. PO (07:30)
[2017-09-17] MEDS: ASPIRIN 325 MG TABLET PO (08:00)
[2017-09-17 08:10] LABS: UNFRACTIONATED HEPARIN TESTING 0.33 IU/mL (0.30-0.70)
[2017-09-17] MEDS: ACETAMINOPHEN 325 MG TABLET. PO ×3 (09:00→20:50)
[2017-09-17] MEDS: LACTOBACILLUS RHAMNOSUS GG 1 CAPSULE. PO ×2 (09:00→20:50)
[2017-09-17] MEDS: LISINOPRIL 5 MG TABLET. PO (09:00)
[2017-09-17] MEDS: METOPROLOL TART IMMED RELEASE 25 MG TABLET. PO ×2 (09:00→20:04)
[2017-09-17] MEDS ORDERED: LIDOCAINE WITH 8.4% SOD BICARB 3 ML DISP.SYRIN. (13:45)
[2017-09-17] MEDS ORDERED: IOHEXOL 300 MG/ML 100ML VIAL. (13:46)
[2017-09-17] MEDS ORDERED: IODIXANOL 320 MG/ML 100 ML VIAL. (14:02)
[2017-09-17] MEDS ORDERED: fentaNYL PF VIAL 100 MCG/2 ML VIAL (14:08)
[2017-09-17] MEDS ORDERED: MIDAZOLAM HCL/PF 2 MG/2 ML VIAL. (14:08)
[2017-09-17] MEDS: LIDOCAINE WITH 8.4% SOD BICARB 3 ML DISP.SYRIN. IJ (14:46)
[2017-09-17] MEDS: IODIXANOL 320 MG/ML 100 ML VIAL. IART (14:46)
[2017-09-17] MEDS: MIDAZOLAM HCL/PF 2 MG/2 ML VIAL. IV (14:48)
[2017-09-17] MEDS: cefTRIAXone IV Push 1 GM VIAL. IVP (16:03)
[2017-09-17] MEDS: HYDROmorphone 2 MG TABLET PO (18:17)
[2017-09-17 19:09] LABS: UNFRACTIONATED HEPARIN TESTING 0.17 IU/mL (0.30-0.70)
[2017-09-17] MEDS: HEPARIN 25,000UTS/500ML PREMIX 500 ML IV (19:41)
[2017-09-18 01:49] LABS: UNFRACTIONATED HEPARIN TESTING 0.47 IU/mL (0.30-0.70)
[2017-09-18] MEDS: ASPIRIN 325 MG TABLET PO (07:30)
[2017-09-18] MEDS: HYDROmorphone 2 MG TABLET PO ×2 (07:30→13:33)
[2017-09-18] MEDS: LACTOBACILLUS RHAMNOSUS GG 1 CAPSULE. PO (07:31)
[2017-09-18] MEDS: PANTOPRAZOLE 40 MG TABLET.DR. PO (07:31)
[2017-09-18] MEDS: ACETAMINOPHEN 325 MG TABLET. PO ×2 (07:31→13:24)
[2017-09-18] MEDS: LISINOPRIL 5 MG TABLET. PO (07:38)
[2017-09-18] MEDS: METOPROLOL TART IMMED RELEASE 25 MG TABLET. PO (07:40)
[2017-09-18 08:33] LABS: UNFRACTIONATED HEPARIN TESTING 0.51 IU/mL (0.30-0.70)
[2017-09-18] MEDS: CEPHALEXIN 250 MG CAPSULE. PO (15:56)
[2017-09-18] MEDS: APIXABAN 5 MG TABLET. PO (15:57)
== END 2017-09-18 16:40 | disposition home or self-care (01) | DRG 299 ==
LOC: ER 14:37 → 5 SOUTH 09-17 19:46
PROC: B51C1ZZ Fluoroscopy of Left Lower Extremity Veins using Low Osmolar Contrast (ICD-10-PCS; principal; 2017-09-17)
DX: I82.412 Acute embolism and thrombosis of left femoral vein (principal); E43 Unspecified severe protein-calorie malnutrition; I11.0 Hypertensive heart disease with heart failure; I50.9 Heart failure, unspecified; I25.10 Atherosclerotic heart disease of native coronary artery without angina pectoris; I70.202 Unspecified atherosclerosis of native arteries of extremities, left leg; E78.5 Hyperlipidemia, unspecified; F17.210 Nicotine dependence, cigarettes, uncomplicated; I82.502 Chronic embolism and thrombosis of unspecified deep veins of left lower extremity; I87.2 Venous insufficiency (chronic) (peripheral); J44.9 Chronic obstructive pulmonary disease, unspecified; G89.29 Other chronic pain; I87.002 Postthrombotic syndrome without complications of left lower extremity; Z85.46 Personal history of malignant neoplasm of prostate; I25.2 Old myocardial infarction; Z86.711 Personal history of pulmonary embolism; Z79.01 Long term (current) use of anticoagulants; Z79.82 Long term (current) use of aspirin; Z82.49 Family history of ischemic heart disease and other diseases of the circulatory system; Z95.5 Presence of coronary angioplasty implant and graft; Z90.49 Acquired absence of other specified parts of digestive tract; Z71.6 Tobacco abuse counseling
CPT/HCPCS: 36012; 36415; 75820; 76937; 80053; 85025; 85027; 85520; 85610; 85651; 85730; 93971; 96374; 97162-GP; 97165-GO; 99152; 99285; 99285-25; C1769; C1892; C1894; J0696; J1644; J2250; J2270; J3010

== ENCOUNTER → 2018-04-18 | Outpatient (CLI) | payer OTHER ==
[2017-10-19 08:30] VITALS: BP 130/71
[~2018-04-18] MED LIST changes: +CEPH250C PO; +HYDR2TAB31 PO; -HYDROmorphone 2 MG/ML VIAL IV PRN; -IV RINGERS,LACTATED 1000ML 1,000 ML IV SCH; -LIDOCAINE 1% PF 2 ML VIAL. ID PRN; -MORPHINE SULFATE 2 MG/ML DISP.SYRIN. IV PRN; -ONDANSETRON PF 4 MG/2 ML VIAL. IV PRN; -PROCHLORPERAZINE 10 MG/2 ML VIAL. IV PRN; -fentaNYL PF VIAL 100 MCG/2 ML VIAL IV PRN
--- NOTE | 2018-04-18 08:40 | CARD ---
MR#: [id number] Date of Study: 04/18/2018 Ordering Physician: JOE GARCIA, Referring Physician: JOE GARCIA Tech: Erin Mohr RDCS APPROVED REPORT EXAM: Two-dimensional and M-mode echocardiogram with Doppler and color Doppler. Other Information Quality : GoodHR: 69bpm Rhythm : NSR INDICATION CAD 2D DIMENSIONS RVDd3.0 (2.9-3.5cm)Left Atrium(2D)3.5 (1.6-4.0cm) IVSd1.1 (0.7-1.1cm)Aortic Root(2D)3.3 (2.0-3.7cm) LVDd4.9 (3.9-5.9cm)LVOT Diameter2.3 (1.8-2.4cm) PWd0.8 (0.7-1.1cm)LVDs3.6 (2.5-4.0cm) FS (%) 27.5 %SV61.0 ml LVEF(%)53.2 (>50%) M-Mode DIMENSIONS Left Atrium(MM)3.91 (2.5-4.0cm)Aortic Root3.76 (2.2-3.7cm) Aortic Valve AoV Peak Louie.86.7cm/sAoV VTI19.1cm AO Peak GR.3.0mmHgLVOT Peak Louie.83.1cm/s AO Mean GR.2mmHgAVA (VMAX)4.14cm2 MI (VTI)4.00cm2 Mitral Valve MV E Pfsdrsnh59.7cm/sMV DECEL ANQE793kh MV A Zgxmgqvo54.4cm/sE/A Ratio0.6 MV A Xejyjfgw077qj Pulmonary Valve PV Peak Xdtvlzjf667.5cm/s LEFT VENTRICLE The left ventricle is normal size. There is normal left ventricular wall thickness. Left ventricle sy stolic function is low normal. The Ejection Fraction is 50-55%. The basal to mid inferior wall is mod erately hypokinetic. Transmitral Doppler flow pattern is Grade I-abnormal relaxation pattern. RIGHT VENTRICLE The right ventricle is normal size. There is normal right ventricular wall thickness. The right ventr icular systolic function is normal. ATRIA The left atrium size is normal. The right atrium size is normal. The interatrial septum is intact wit h no evidence for an atrial septal defect or patent foramen ovale as noted on 2-D or Doppler imaging. AORTIC VALVE The aortic valve is normal in structure and function. The aortic valve is trileaflet. Doppler and Col or Flow revealed no significant aortic regurgitation. There is no significant aortic valvular stenosi s. MITRAL VALVE The mitral valve is normal in structure and function. There is no evidence of mitral valve prolapse. There is no mitral valve stenosis. Doppler and Color-flow revealed trace mitral regurgitation. TRICUSPID VALVE The tricuspid valve is normal in structure and function. Doppler and Color Flow revealed no tricuspid valve regurgitation noted. There is no tricuspid valve prolapse or vegetation. There is no tricuspid valve stenosis. PULMONIC VALVE The pulmonary valve is normal in structure and function. Doppler and Color Flow revealed no pulmonic valvular regurgitation. There is no pulmonic valvular stenosis. GREAT VESSELS The aortic root is normal in size. The ascending aorta is normal in size. The IVC is normal in size a nd collapses >50% with inspiration. PERICARDIAL EFFUSION There is no evidence of significant pericardial effusion. Critical Notification Critical Value: No <Conclusion> Left ventricle systolic function is low normal. The Ejection Fraction is 50-55%. The basal to mid inferior wall is moderately hypokinetic. No significant valvular disease. Signed by : Antonio Rubio, Electronically Approved : 04/18/2018 08:39:01
== END | disposition home or self-care (01) ==
LOC: ECHO 07:42
PROVIDERS: ATTEND Internal Medicine Cardiovascular Disease
DX: I25.10 Atherosclerotic heart disease of native coronary artery without angina pectoris (principal)
CPT/HCPCS: 93306

== ENCOUNTER → 2018-10-10 | Day surgery (SDC) | payer MEDICARE, OTHER ==
[~2018-10-10] MED LIST changes: +IV RINGERS,LACTATED 1000ML 1,000 ML IV SCH; +LIDOCAINE 1% PF 2 ML VIAL. ID PRN; +MIDAZOLAM HCL/PF 2 MG/2 ML VIAL. IV PRN; -PANT40TA3 PO; -PANT40TA5 PO; +PANT40TA77 PO; +PROPOFOL 20 ML IV ONE; +fentaNYL PF VIAL 100 MCG/2 ML VIAL IV PRN
[2018-10-10 13:44] VITALS: BP 121/75
--- NOTE | 2018-10-10 19:16 | CONS ---
DATE OF CONSULTATION: 10/10/2018 REFERRING PHYSICIAN: Slim Walker MD. HISTORY OF PRESENT ILLNESS: A 63-year-old male whose past medical history is significant for hypertension, Annalise esophagitis, esophageal strictures, seen for interval dilatation, has had recurrent dysphagia in the substernal location. Denies any melena and/or hematemesis. Weight has been stable. Otherwise, no additional complaints. PAST MEDICAL HISTORY: Organic heart disease, AFib, gastroesophageal reflux disease. ALLERGIES: None. MEDICATIONS: Eliquis and pantoprazole. FAMILY AND SOCIAL DRINKER: He is a social drinker and smoker. PAST SURGICAL HISTORY: Status post back surgery, cholecystectomy, inguinal hernia repair. REVIEW OF SYSTEMS: Per records. PHYSICAL EXAMINATION: GENERAL: Reveals a well-nourished, well-developed male, who is alert, oriented, cooperative, and in no acute distress. VITAL SIGNS: Temperature is 97.8, pulse 64, respiratory rate is 20. HEENT: Normocephalic, atraumatic head. Pupils and extraocular muscles are not tested. Sclerae anicteric. NECK: Supple. LUNGS: Clear. CARDIOVASCULAR: Reveals an S1, S2 without S3, S4 or appreciable murmur. ABDOMEN: Soft abdomen, normal bowel sounds without appreciable hepatosplenomegaly. EXTREMITIES: Reveals no cyanosis, clubbing, or edema. IMPRESSION: Recurrent dysphagia with a known stricture, most likely secondary to recurrent stricturing. Recommend upper endoscopy with possible biopsy and dilatation. Risks and benefits of procedure including risk of hemorrhage and perforation have been discussed. The patient is willing to proceed at this time. FUNMI YING MD DR: ZOLTAN/vale JOB#: [id number] / [id number] SLIM Majano MD
== END ==
LOC: SURG 12:35
PROVIDERS: ATTEND Internal Medicine Gastroenterology
DX: K22.2 Esophageal obstruction (principal); K29.50 Unspecified chronic gastritis without bleeding; K21.9 Gastro-esophageal reflux disease without esophagitis; I48.91 Unspecified atrial fibrillation; Z90.49 Acquired absence of other specified parts of digestive tract
CPT/HCPCS: 43249; J2704; 43450

== ENCOUNTER → 2018-10-16 | Outpatient (CLI) | payer OTHER ==
[2018-10-10 13:44] VITALS: BP 121/75
[~2018-10-16] MED LIST changes: -IV RINGERS,LACTATED 1000ML 1,000 ML IV SCH; -LIDOCAINE 1% PF 2 ML VIAL. ID PRN; -MIDAZOLAM HCL/PF 2 MG/2 ML VIAL. IV PRN; -PROPOFOL 20 ML IV ONE; +REGADENOSON 0.4 MG/5 ML DISP.SYRIN. IV ONE; -fentaNYL PF VIAL 100 MCG/2 ML VIAL IV PRN
--- NOTE | 2018-10-16 10:49 | RAD ---
MR#: [id number] Date of Study: 10/16/2018 Ordering Physician: JOE GARCAI, Referring Physician: GOLDY ANDERSON Tech: EMILIO Barroso APPROVED REPORT Test Type: Pharmacological Stress Nurse/Tech: Supriya Sharma RN Test Indications: CAD Cardiac History: Smoker, 1 stent 2 years ago Medications: See Electronic Medical Record Medical History: See Electronic Medical Record Resting ECG: SB Resting Heart Rate: 51 bpm Resting Blood Pressure: 129/76mmHg Pretest Chest Pain: No chest pain Nurse/Tech Notes S1,S2 and lungs slightly diminished in the bases. Consent: The procedure was explained to the patient in lay terms. Informed consent was witnessed. Walter eout was entered into [employer]. History and Stress Test performed by RT [place] (R) (N) Pharm. Details Pharmacologic stress testing was performed using 0.4mg per 5ml of regadenoson given intravenously ove r 7-10 seconds. Stress Symptoms No chest pain or symptoms. POST EXERCISE Reason for Termination: Infusion complete Target HR: No Max HR: 82 bpm Max Blood Pressure: 133/82mmHg Blood Pressure response to exercise: Normal blood pressure response during stress. Heart Rate response to exercise: WNL Chest Pain: No. Arrhythmia: Yes. PVC ST Change: No. INTERPRETATION Stress EKG Conclusion: Baseline EKG showed sinus rhythm. No ischemic changes at peak stress. No arr hythmias. Imaging Protocol IMAGE PROTOCOL: Rest Tc-99m/stress Tc-99m 1 day Rest: Stress: Viability: Radiopharm.Tc99m VbhfewwmrQf74g Sestamibi Dose9.9mCi 33mCi Duration 13.5min. 13.5min. Img Date 10/16/2018 10/16/2018 Inj-Img Liin96vvz. 60min. Rest Admin Site:IV - Right AntecubitalAdministrator:RT [place] (R)(N) Stress Admin Site: IV - Right AntecubitalAdministrator: MANAS Garcia, ARRT (R)(N) STRESS DATA End Diast. Vol.95.0mlLVEDV index BSA50.0ml End Syst. Vol.27.0mlLVESV index BSA14.0ml Myocardial Jirt249.0gEject. Wygdopsr59.0% Stress Scores Regional WT0.00Summed WT6.00 Regional WM0.00Summed WM0.00 LV Perfusion Scintigraphic images showed small to moderate fixed defect involving base to mid inferior and inferol ateral green consistent with previous myocardial infarction without any reversibility. Wall Motion Basal inferior wall hypokinesis with ejection fraction calculated at 72%. LV Perf. Quant 17 Seg. SSS8.00 17 Seg. SRS9.00 17 Seg. SDS0.00 Stress Defect Extent (% LAD)1.30Rest Defect Extent (% LAD)2.50Rev. Defect Extent (% LAD)0.00 Stress Defect Extent (% LCX) 26.30Rest Defect Extent (% LCX)15.00Rev. Defect Extent (% LCX)1.30 Stress Defect Extent (% RCA)58.90Rest Defect Extent (% RCA)37.80Rev. Defect Extent (% RCA)17.80 Stress Defect Extent (% СВЕТЛАНА)26.30Rest Defect Extent (% СВЕТЛАНА)17.40Rev. Defect Extent (% СВЕТЛАНА)3.90 Conclusion 1. Regadenoson cardioisotope stress test showed qrnoa-fw-morhwawv infarct involving base to mid infer ior and inferolateral green without any ischemia. 2. Basal inferior wall hypokinesis with ejection fraction calculated at 72%. 3. Low risk for cardiac events. Signed by : Joe Garcia, Electronically Approved : 10/16/2018 10:48:41
== END | disposition home or self-care (01) ==
LOC: NM 07:45
PROVIDERS: ATTEND Internal Medicine Cardiovascular Disease
DX: I49.3 Ventricular premature depolarization (principal); I25.10 Atherosclerotic heart disease of native coronary artery without angina pectoris; I25.2 Old myocardial infarction; Z87.891 Personal history of nicotine dependence
CPT/HCPCS: 78452; 93017; A9500; J2785

== ENCOUNTER → 2019-03-26 | Outpatient (CLI) | payer OTHER, MEDICARE ==
[2018-10-10 13:44] VITALS: BP 121/75
[~2019-03-26] MED LIST changes: -NITR0.4T SL; +NITR0.4T24 SL; +OMEP40CA45 PO; -OMEP40CA5 PO; -REGADENOSON 0.4 MG/5 ML DISP.SYRIN. IV ONE
--- NOTE | 2019-03-26 19:28 | RAD ---
MR#: [id number] Date of Study: 03/26/2019 Ordering Physician: JOE GARCIA, Referring Physician: JOE GARCIA, Tech: Jonnie Hidalgo MBA, RDMS, RVT, RDCS, RTR APPROVED REPORT Patient Location: OUT-PATIENT Indications PAD VELOCITY AND DOPPLER WAVEFORM ANALYSIS RIGHT cm/secWaveformSeverity LEFT cm/secWaveform Severity dCFA 84.0TriphasicdCFA 66.0Triphasic Prof Fem Art. 53.0BiphasicProf Fem Art. 63.0Biphasic Fem Art Prox. 93.0TriphasicFem Art Prox. 84.0Triphasic Fem Art Mid. 80.0TriphasicFem Art Mid. 75.0Triphasic Fem Art Dist. 83.0TriphasicFem Art Dist. 49.0Triphasic Pop Art(Fossa) 82.0TriphasicPop Art(AK) 72.0Triphasic HEADLIGHT ADJUSTER Prox. 57.0TriphasicPTA Prox. Occluded HEADLIGHT ADJUSTER Dist. 54.0TriphasicPTA Dist. Occluded Per Art Mid. 28.0TriphasicPer Art Mid. 43.0Biphasic VANIA Prox. OccludedATA Prox. 46.0Biphasic DPA OccludedDPA 89Biphasic Findings Grayscale images of the bilateral lower extremity arterial vessels reveal moderate diffuse plaque thr oughout. Above the knee no focal high-grade stenosis is identified. On the right side the anterior tibial artery is not visualized and may be occluded. On the left side the posterior tibial artery is not visualized and may be occluded. Critical Notification Critical Value: No <Conclusion> 1. No significant flow-limiting stenosis above the knee bilaterally. 2. Right-sided anterior tibial occlusion and left-sided posterior tibial occlusion versus nonvisualiz ation. Signed by : Antonio Rubio, Electronically Approved : 03/26/2019 19:28:21
== END | disposition home or self-care (01) ==
LOC: US 13:40
PROVIDERS: ATTEND Internal Medicine Cardiovascular Disease
DX: I70.203 Unspecified atherosclerosis of native arteries of extremities, bilateral legs (principal)
CPT/HCPCS: 93925

== ENCOUNTER → 2019-09-15 | Outpatient (CLI) | payer MEDICARE, OTHER ==
[2019-06-20 14:20] VITALS: BP 111/62
[~2019-09-15] MED LIST changes: +LISI-338 PO; +OMEP20CA16 PO; +REGADENOSON 0.4 MG/5 ML DISP.SYRIN. IV ONE
--- NOTE | 2019-09-15 09:45 | CARD ---
MR#: [id number] Date of Study: 09/15/2019 Ordering Physician: JOE GARCIA, Referring Physician: JOE GARCIA Tech: Tiffany Wallace RDCS APPROVED REPORT EXAM: Two-dimensional and M-mode echocardiogram with Doppler and color Doppler. Other Information Quality : Good INDICATION Cardiac Disease: CAD RISK FACTORS Smoking 2D DIMENSIONS RVDd2.9 (2.9-3.5cm)Left Atrium(2D)4.0 (1.6-4.0cm) IVSd0.7 (0.7-1.1cm)Aortic Root(2D)3.0 (2.0-3.7cm) LVDd5.0 (3.9-5.9cm)LVOT Diameter2.2 (1.8-2.4cm) PWd0.9 (0.7-1.1cm)LVDs4.3 (2.5-4.0cm) FS (%) 25.0 %LVEF(%)50.0 (>50%) Aortic Valve AoV Peak Louie.91.0cm/sAoV VTI21.0cm AO Peak GR.3.2mmHgAO Mean GR.2mmHg MI (VTI)3.80cm2 LEFT VENTRICLE The left ventricle is normal size. There is normal left ventricular wall thickness. The left ventricu lar systolic function is normal and the ejection fraction is within normal range. EF 55% There is nor mal LV segmental wall motion. Transmitral Doppler flow pattern is Grade I-abnormal relaxation pattern . RIGHT VENTRICLE The right ventricle is normal size. The right ventricular systolic function is normal. ATRIA The left atrium is mildly dilated. The right atrium size is normal. The interatrial septum is intact with no evidence for an atrial septal defect or patent foramen ovale as noted on 2-D or Doppler imagi ng. AORTIC VALVE The aortic valve is calcified but opens well. Doppler and Color Flow revealed trace aortic regurgitat ion. There is no significant aortic valvular stenosis. MITRAL VALVE The mitral valve is calcified but opens well. Mitral annular calcification is mild. There is no evide nce of mitral valve prolapse. There is no mitral valve stenosis. Doppler and Color-flow revealed trac e mitral regurgitation. TRICUSPID VALVE The tricuspid valve is normal in structure and function. Doppler and Color Flow revealed no tricuspid valve regurgitation noted. There is no tricuspid valve stenosis. PULMONIC VALVE The pulmonary valve is normal in structure and function. Doppler and Color Flow revealed trace pulmon ic valvular regurgitation. There is no pulmonic valvular stenosis. GREAT VESSELS The aortic root is normal in size. The ascending aorta is not well seen. The IVC is normal in size an d collapses >50% with inspiration. PERICARDIAL EFFUSION There is no evidence of significant pericardial effusion. Critical Notification Critical Value: No <Conclusion> The left ventricular systolic function is normal and the ejection fraction is within normal range. EF 55% There is normal LV segmental wall motion. Signed by : Antonio Rubio, Electronically Approved : 09/15/2019 09:44:20
--- NOTE | 2019-09-15 11:40 | RAD ---
MR#: [id number] Date of Study: 09/15/2019 Ordering Physician: JOE GARCIA Referring Physician: GOLDY ANDERSON Tech: RT Garett Goff) (N) APPROVED REPORT Test Type: Pharmacological Stress Nurse/Tech: RT [place] (Ira) (N) Test Indications: coronary artery disease Cardiac History: 1 stent 3 years ago Medications: see EHR Medical History: see EHR Resting ECG: sinus rhythm Resting Heart Rate: 56 bpm Resting Blood Pressure: 136/74mmHg Pretest Chest Pain: None Nurse/Tech Notes Consent: The procedure was explained to the patient in lay terms. Informed consent was witnessed. Walter eout was entered into [employer]. History and Stress Test performed by RT Garett Goff) (N) Pharm. Details Pharmacologic stress testing was performed using 0.4mg per 5ml of regadenoson given intravenously ove r 7-10 seconds. POST EXERCISE Reason for Termination: Infusion complete Max HR: 126 bpm Max Blood Pressure: 136/74mmHg Chest Pain: No. Arrhythmia: No. INTERPRETATION Stress EKG Conclusion: Baseline EKG showed sinus rhythm. No ischemic changes at peak stress. No arr hythmias. Imaging Protocol IMAGE PROTOCOL: Rest Tc-99m/stress Tc-99m 1 day Rest: Stress: Viability: Radiopharm.Tc99m [id number] Sestamibi Ldfz44tUm 33mCi Duration 15min. 10min. Img Date 09/15/2019 09/15/2019 Inj-Img [id number]. 60min. Rest Admin Site:IV - Right AntecubitalAdministrator:RT [place] (Ira)(N) Stress Admin Site: IV - Right AntecubitalAdministrator: RT Garett Webster)(N) STRESS DATA End Diast. Vol.77.0mlAv. Heart Lnpk253.0bpm End Syst. Vol.38.0mlCO Index BSA0.0L/min Myocardial Qquu902.0gEject. Gdpfdwnv98.0% Stress Rates Pk. Fill Rate3.35EDV/secLVtime Pk. Fill 204.64msec Pk. Empty Rate4.88ESV/secLVtime Pk. Eject86.24msec 1/3 Pk. Fill0.34EDV/sec Stress Scores Regional WT3.00Summed WT44.00 Regional WM1.00Summed WM12.00 LV Perfusion Scintigraphic images showed small fixed defect involving the inferior wall consistent with previous m yocardial infarction without any reversibility. Wall Motion Basal inferior wall hypokinesis with ejection fraction calculated at 45% LV Perf. Quant 17 Seg. SSS5.00 17 Seg. SRS2.00 17 Seg. SDS3.00 Stress Defect Extent (% LAD)0.00Rest Defect Extent (% LAD)0.00Rev. Defect Extent (% LAD)0.00 Stress Defect Extent (% LCX) 20.00Rest Defect Extent (% LCX)15.00Rev. Defect Extent (% LCX)2.50 Stress Defect Extent (% RCA)10.00Rest Defect Extent (% RCA)0.00Rev. Defect Extent (% RCA)10.00 Stress Defect Extent (% СВЕТЛАНА)12.60Rest Defect Extent (% СВЕТЛАНА)3.90Rev. Defect Extent (% СВЕТЛАНА)4.60 Conclusion 1. Regadenoson cardioisotope stress test showed small inferior wall infarct without any ischemia. 2. Basal inferior wall hypokinesis with ejection fraction calculated at 45% 3. Low risk for cardiac events. Signed by : Joe Garcia, Electronically Approved : 09/15/2019 11:39:37
== END | disposition home or self-care (01) ==
LOC: NM 07:34
PROVIDERS: ATTEND Internal Medicine Cardiovascular Disease
DX: I08.0 Rheumatic disorders of both mitral and aortic valves (principal); I25.10 Atherosclerotic heart disease of native coronary artery without angina pectoris; I25.2 Old myocardial infarction; Z95.818 Presence of other cardiac implants and grafts
CPT/HCPCS: 78452; 93017; 93306; A9500; J2785

== ENCOUNTER → 2021-03-30 | Day surgery (SDC) | payer MEDICARE, OTHER ==
[~2021-03-30] VITALS: Ht 170.2 cm; Wt 78.1 kg
[~2021-03-30] MED LIST changes: -ASPI-612 PO; +ASPI-886 PO; +HYDROmorphone 2 MG/ML VIAL IVP PRN; +IV RINGERS,LACTATED 1000ML 1,000 ML IV SCH; -LISI-338 PO; -LISI2.5T PO; +LISI2.5T12 PO; +LISI5TAB15 PO; +MORPHINE SULFATE 2 MG/ML INJ. IVP PRN; -OMEP40CA45 PO; +OMEP40CA7 PO; +PROCHLORPERAZINE 10 MG/2 ML VIAL. IVP PRN; +PROPOFOL 10 MG/ML (20ML) VIAL. IV ONE; -REGADENOSON 0.4 MG/5 ML DISP.SYRIN. IV ONE; +fentaNYL PF VIAL 100 MCG/2 ML VIAL IVP PRN
[2021-03-30 06:24] VITALS: BP 145/69
[2021-03-30 07:55] VITALS: BP 119/58
--- NOTE | 2021-03-30 21:39 | CONS ---
DATE OF CONSULTATION: 03/30/2021 REASON: Dysphagia. HISTORY OF PRESENT ILLNESS: A 65-year-old male with past medical history significant for hypertension, history of known stricture, seen with recurrent dysphagia in the upper esophagus, moderate to severity and worsening, mainly with solids, not with liquids. Risk factors for reflux include tobacco use and alcohol. Did have prior dilatation in 2018, which has been helpful until recently. PPI therapy has been prescribed, but not taken, will be resumed. Otherwise without additional complaints. PAST MEDICAL HISTORY: Hypertension, AFib, gastroesophageal reflux disease. ALLERGIES: None. MEDICATIONS: Include Eliquis, lisinopril, metoprolol, omeprazole. PAST SURGICAL HISTORY: Significant for hernia repair, cholecystectomy and back surgery. REVIEW OF SYSTEMS: Per records. PHYSICAL EXAMINATION: VITAL SIGNS: Temperature is 97.8, pulse 65, respiratory rate 14. LUNGS: Clear. CARDIOVASCULAR: Reveals an S1, S2, without S3, S4 or appreciable murmur. ABDOMEN: Soft abdomen, normal bowel sounds, without appreciable hepatosplenomegaly. EXTREMITIES: Reveal no cyanosis, clubbing or edema. IMPRESSION AND PLAN: Dysphagia with stricture. Differential includes Schatzki's ring, malignancy, achalasia, eosinophilic esophagitis. Recommend upper endoscopy, possible biopsy and dilatation. Risks and benefits of procedure have been discussed. The patient is willing to proceed at this time. RIKI/BRITT DR: Sharona TID: [id number]
== END | disposition home or self-care (01) ==
LOC: ENDOS 05:54
PROVIDERS: ATTEND Internal Medicine Gastroenterology
DX: R13.10 Dysphagia, unspecified (principal); K29.50 Unspecified chronic gastritis without bleeding; K21.9 Gastro-esophageal reflux disease without esophagitis; K22.2 Esophageal obstruction; K31.89 Other diseases of stomach and duodenum; I10 Essential (primary) hypertension; I48.91 Unspecified atrial fibrillation; I25.10 Atherosclerotic heart disease of native coronary artery without angina pectoris; I11.0 Hypertensive heart disease with heart failure; I50.9 Heart failure, unspecified; E78.00 Pure hypercholesterolemia, unspecified; J44.9 Chronic obstructive pulmonary disease, unspecified; M19.90 Unspecified osteoarthritis, unspecified site; F17.210 Nicotine dependence, cigarettes, uncomplicated; Z90.49 Acquired absence of other specified parts of digestive tract; Z98.890 Other specified postprocedural states; Z79.899 Other long term (current) drug therapy; Z72.89 Other problems related to lifestyle; Z20.822 Contact with and (suspected) exposure to COVID-19
CPT/HCPCS: 43249; 87426; C1726; J2704; 43233

== ENCOUNTER → 2021-08-31 | Day surgery (SDC) | payer MEDICARE, OTHER ==
[~2021-08-31] VITALS: Ht 170.2 cm; Wt 65.0 kg
[~2021-08-31] MED LIST changes: -HYDROmorphone 2 MG/ML VIAL IVP PRN; -MORPHINE SULFATE 2 MG/ML INJ. IVP PRN; -OMEP20TA8 PO; +OMEP20TA91 PO; -PROCHLORPERAZINE 10 MG/2 ML VIAL. IVP PRN; -fentaNYL PF VIAL 100 MCG/2 ML VIAL IVP PRN
[2021-08-31 08:18] VITALS: BP 121/86
[2021-08-31 09:13] VITALS: BP 113/72
== END | disposition home or self-care (01) ==
LOC: SURG 07:50
PROVIDERS: ATTEND Internal Medicine Gastroenterology
DX: R13.10 Dysphagia, unspecified (principal); K29.50 Unspecified chronic gastritis without bleeding; K22.2 Esophageal obstruction; K31.89 Other diseases of stomach and duodenum; I11.0 Hypertensive heart disease with heart failure; I50.9 Heart failure, unspecified; I25.10 Atherosclerotic heart disease of native coronary artery without angina pectoris; E78.00 Pure hypercholesterolemia, unspecified; J44.9 Chronic obstructive pulmonary disease, unspecified; K21.9 Gastro-esophageal reflux disease without esophagitis; M19.90 Unspecified osteoarthritis, unspecified site; Z79.899 Other long term (current) drug therapy; Z98.890 Other specified postprocedural states
CPT/HCPCS: 43249; C1726; J2704; 43233